=== PATIENT | female | born 1960 | race Caucasian/White ===

== ENCOUNTER → 2020-06-14 12:28 | Outpatient (CLI) | payer BC, SELFPAY ==
--- NOTE | ~2020-06-14 | MM_ITS ---
EXAMINATION: MM screening david BI w kristina HISTORY: Screening mammogram, family history of breast cancer in her mother and sister. TECHNIQUE: Craniocaudal and mediolateral oblique 3-D tomosynthesis images were obtained and synthetic 2-D images were generated. CAD analysis was submitted and interpreted. COMPARISON: 07/05/2019, 06/24/2018, 07/21/2017 BREAST PARENCHYMAL COMPOSITION: There are scattered areas of fibroglandular density. FINDINGS: Stable focal asymmetry is present in the posterior third of the upper outer quadrant of the right breast. There is no evidence of suspicious mass, calcification, or architectural distortion to suggest malignancy in either breast. There has been no suspicious interval change. IMPRESSION: 1. No mammographic evidence of malignancy. 2. Recommend routine screening mammography in one year. BI-RADS Category 2: Benign finding(s). Reviewed, dictated and finalized at location A.
== END ==
PROVIDERS: PCP Family Medicine; Visit Provider Nurse Practitioner
DX: Z12.31 Encounter for screening mammogram for malignant neoplasm of breast (principal)
CPT/HCPCS: 77063; 77067

== ENCOUNTER 2020-06-20 01:54 | Outpatient (CLI) | payer BC, SELFPAY ==
[2020-06-20 20:48] LABS: SARS-CoV-2 RNA PCR Negative
== END 2020-06-20 01:55 | disposition home or self-care (01) ==
LOC: ANHCOVIDDT 01:56
PROVIDERS: PCP Family Medicine; Visit Provider Podiatrist Foot & Ankle Surgery
DX: Z01.812 Encounter for preprocedural laboratory examination (principal); Z20.828 Contact with and (suspected) exposure to other viral communicable diseases
CPT/HCPCS: 87635; C9803; U0003

== ENCOUNTER 2020-06-22 00:28 | Day surgery (SDC) | payer BC, SELFPAY ==
[2020-06-08 14:07] VITALS: BMI 30.9
[2020-06-22] VITALS (9 sets, daily range): BP systolic 95–125; BP diastolic 55–93; PULSE 74–98; RESP 12–16; TEMP 36.4–36.9; O2SAT 97–100
--- NOTE | ~2020-06-22 | XR_ITS ---
EXAMINATION: XR surgery orthopedic DATE: 06/22/2020 09:07 INDICATION: Left foot surgery TECHNIQUE: 3 fluoroscopic spot images of the left midfoot were obtained during procedure performed by Dr. Vargas. Radiologist was not present for the imaging or procedure. The amount of fluoroscopy ti me used during this procedure was 0.6 minutes. COMPARISON: None. FINDINGS: Images demonstrate a talonavicular arthrodesis with cannulated compression screw and dorsal staple fi xation. No fracture. Alignment remains essentially anatomic. Mild polyarticular osteoarthritis in the remaining joints of the midfoot. IMPRESSION: 1. Expected appearance post left talonavicular arthrodesis. Reviewed, dictated and finalized at location B.
[2020-06-22] MEDS: LACTATED RINGERS 1,000 ML 30 ML IV CONT ×2 (06:50→09:10)
--- NOTE | 2020-06-22 06:54 | P.PNAN_ITS ---
Anes - Initial Pre Proc Eval Procedure: Operation Date: 06/22/20 07:30 Proposed Procedures p Talonavicular Joint Fusion Left Foot, Cotton Medial Cuneiform Osteotomy Left Foot - Todd Vargas JR, MD Date/Time: 06/22/20 06:54 Surgeon: Todd Vargas JR, MD Pre Op Diagnosis: Adult Aquired Flat Foot Left Foot Patient Data Age: 59 Gender: F Height: 5 ft 4 in Weight: 81.3 kg Allergies Allergy/AdvReac Type Severity Reaction Status Date / Time hydrocodone AdvReac Unknown NAUSEA/VOMI Verified 06/08/20 14:08 TING Home Medications Medication Instructions Recorded Confirmed Type Fiber Therapy(psyl seed-sugar) 1 tbsp PO DAILY 10/06/19 06/22/20 History Prolia 60 mg SUBCUT [id number] 10/06/19 06/08/20 History cholecalciferol (vitamin D3) 5,000 unit PO DAILY 10/06/19 06/22/20 History esomeprazole magnesium [Nexium] 20 mg PO DAILY 10/06/19 06/22/20 History magnesium 400 mg PO BID PRN 10/06/19 06/22/20 History multivitamin [Multiple Vitamins] 1 tablet PO DAILY 10/06/19 06/22/20 History pseudoephedrine HCl [Sudafed] 30 mg PO Q4-6H PRN 10/06/19 06/08/20 History vitamin E 400 unit PO DAILY 10/06/19 06/22/20 History celecoxib 200 mg capsule 200 mg PO DAILY #90 cap 05/16/20 06/22/20 Rx loratadine 10 mg PO DAILY PRN 06/08/20 06/22/20 History Patient hx anesthesia problems: none Family hx anesthesia problems: none [facility] Past Medical History Medical History Aortic stenosis mild, seen on echo, asymptomatic Gastroesophageal reflux disease without esophagitis Irregular heartbeat PACs Localized osteoarthritis of left knee Vitamin D deficiency Surgical History Surgical History History of total left knee replacement (~11/01/19) History of total right knee replacement (~2018) Presence of right artificial knee joint Family History Family History Father Diabetes mellitus, Onset Age: 60 Family history of diabetes mellitus in first degree relative Family history of arthritis Mother Family history of kidney stones Family history of malignant neoplasm of breast in first degree relative Family history of osteoarthritis Family history of osteoporosis Family history of arthritis Family history of malignant neoplasm Social History Social History Smoking status: Never smoker Alcohol intake: current Drinks per week: 2 Substance use: never Gender identity (if verbalized by the patient): Female Spiritual care concerns: No Agree to blood products: No Anes - Eval Final PreProcedure Day of Procedure 06/22/20 06:54 Patient weight: obese Heart: regular rate and rhythm Lungs: clear to auscultation Airway: Mallampati scale class II Neurological: alert and oriented Last oral intake: >/= 8 hours ASA classification: II Emergent: no Anesthetic plan: proceed Anesthesia type and monitoring: general LMA and standard monitoring Informed Consent: The patient's anesthetic plan and its attendant risks and benefits were discussed with the patient/family/POA. Questions were solicited and answers provided to the satisfaction of the patient/family/POA.
--- NOTE | 2020-06-22 07:11 | WPDHPUPDATE1 ---
History and Physical Update Update Date/Time: 06/22/20 07:11 History and Physical has been reviewed, including an updated exam of the patient. There are NO changes in the patient's condition. Risks, benefits, and alternatives have been discussed and questions answered. Patient agrees to proceed with procedure.
--- NOTE | 2020-06-22 07:19 | WPDANESPNB ---
Anes - Peripheral Nerve Block Date/Time: 06/22/20 07:19 I have discussed with the patient/family/POA the placement of a peripheral nerve block for post-operative pain management, including associated risks, benefits, complications, and side effects. Alternative methods of post-operative analgesia were detailed. Questions were solicited and answers provided to the satisfaction of the patient/family/POA. Time-Out: A pre-procedural Time-Out was completed immediately before starting the procedure and confirmed: Patient Identification, Site, Procedure, Patient Position and the Availability of Requisite Equipment. Clinical Indications: Acute post-operative pain management requested by the operative surgeon. Nerve Block Insertion Note Anes-nerve block: posterior fossa sciatic left and other (saphenous) Patient position: supine Skin prep: chlorhexidine Needle: 22 gauge, stimulating, insulated echogenic needle. Needle length: 80 mm Technique: nerve stimulation lost at (mA) (0.35) Injectate: bupivacaine 0.5% with epi 5 mcg/ml (20 cc sciatic, 10 cc saphenous) and dexamethasone (mg) (8) Observations: tolerated well Complications: none Procedure start time:: 710 Procedure end time:: 718
[2020-06-22] MEDS: ceFAZolin 2 GM/D5W 50 ML 2 GM/50 ML BAG IVPB (07:25)
--- NOTE | 2020-06-22 09:16 | PM.OP ---
Procedure Note - Brief Procedure Note - Brief Date of procedure: 06/22/20 Pre-op diagnosis: Adult Aquired Flat Foot Left Foot Post-op diagnosis: same Procedure performed: Talonavicular joint fusion left foot Anesthesia: GLMA Surgeon: Todd Vargas JR, DPM Estimated blood loss (mL): 5 Complications: No immediate complications Condition: stable Disposition: same day
--- NOTE | 2020-06-22 12:46 | OP_ITS ---
DATE OF PROCEDURE: 06/22/2020 PREOPERATIVE DIAGNOSES: 1. Talotarsal instability of the left foot. 2. Osteoarthritis of the talonavicular joint, left foot. 3. Posterior tibial tendon dysfunction, left foot with a pes planus deformity with an adult acquired pes planovalgus deformity. POSTOPERATIVE DIAGNOSES: 1. Talotarsal instability of the left foot. 2. Osteoarthritis of the talonavicular joint, left foot. 3. Posterior tibial tendon dysfunction, left foot with a pes planus deformity with an adult acquired pes planovalgus deformity. PROCEDURE: Talonavicular joint fusion of the left foot. PATHOLOGY: None. ANESTHESIA: General with popliteal fossa block. HEMOSTASIS: Pneumatic thigh tourniquet at 300 mmHg. ESTIMATED BLOOD LOSS: Minimal. MATERIALS USED: 3-0 PDS, 4-0 Vicryl, and 4-0 Monocryl, 1 IKO System 20 mm x 20 mm compression staple, 1 IKO System 4.3 mm headless partially-threaded cannulated screw. INJECTABLES: None. COMPLICATIONS: None. PROCEDURE IN DETAIL: Under mild sedation, the patient was brought into the operating room, placed on the operating table in the supine position. A pneumatic thigh tourniquet was placed about the patient's left thigh. Following general anesthesia and a previous popliteal fossa block, the left foot was then scrubbed, prepped, and draped in the usual aseptic manner. An Esmarch bandage was then used to exsanguinate the patient's left foot and the pneumatic thigh tourniquet was then inflated. The procedure started in the following manner: Attention was directed to the dorsal aspect of the talonavicular joint of the left foot where a 6 cm incision was made in between the extensor hallucis longus tendon as well as the tibialis anterior tendon. The incision was continued deep down through subcutaneous tissues using sharp and blunt dissection. All bleeders were ligated and cauterized as necessary. At this point, a full length periosteal and capsular incision was made overlying the talonavicular joint. The periosteal and capsular structures were freed both medially and laterally thus exposing the talonavicular joint at the operative site. At this point, a curette was used to remove all cartilage. Next a 2.0 mm drill bit was used to fenestrate the head of the talus as well as the base of the navicular. Next, a small osteotome and corresponding mallet were used to fish scale the talonavicular joint to promote fusion across the arthrodesis site. At this point, the joint distractor that was used to open the joint for joint preparation was removed. A guidewire for a 4.3 mm IKO System partially-threaded headless screw was driven from plantar medial to the central or lateral aspect of the neck. Next, a countersink was used in order to prevent fracturing of the navicular with screw purchase. Next, a 4.3 mm x 34 mm IKO System headless partially-threaded cannulated screw was driven across the talonavicular joint with excellent compression noted. Fluoroscopy was used to make sure that the screw was appropriately positioned in both the AP and lateral view. Next, in order to obtain excellent compression across the lateral aspect of the talonavicular joint, a 20 mm x 20 mm IKO System compression staple was placed from dorsal to plantar with excellent compression noted. [facility] Allomatrix bone graft was placed along the dorsal aspect of the talonavicular joint anywhere where there was gapping present after the joint preparation. The wound site was then flushed with copious amounts of sterile saline. Next, the periosteum and capsular structures were reapproximated and coapted utilizing 3-0 PDS. Next, the subcutaneous structures were reapproximated and coapted utilizing 4-0 Vicryl. Next, the skin was reapproximated and coapte
== END 2020-06-22 11:57 | disposition home or self-care (01) ==
PROVIDERS: PCP Family Medicine; Visit Provider Podiatrist Foot & Ankle Surgery
PROC: (CPT 28750; principal; 2020-06-22 07:30)
DX: M25.372 Other instability, left ankle (principal); M19.072 Primary osteoarthritis, left ankle and foot; M21.42 Flat foot [pes planus] (acquired), left foot; M21.072 Valgus deformity, not elsewhere classified, left ankle; M76.822 Posterior tibial tendinitis, left leg; G89.18 Other acute postprocedural pain; I35.0 Nonrheumatic aortic (valve) stenosis; K21.9 Gastro-esophageal reflux disease without esophagitis; E55.9 Vitamin D deficiency, unspecified; E66.9 Obesity, unspecified; Z68.30 Body mass index [BMI] 30.0-30.9, adult
CPT/HCPCS: 28740; 64445; 64450; A9270; C1713; C9290; J0690; J1100; J2250; J2405; J2704; J3010; J7120

== ENCOUNTER 2020-09-25 00:26 | Outpatient (CLI) | payer BC, SELFPAY ==
[2020-09-25 18:51] LABS: SARS-CoV-2 RNA PCR Negative
== END 2020-09-25 00:27 | disposition home or self-care (01) ==
LOC: ANHCOVIDDT 00:26
PROVIDERS: PCP Family Medicine; Visit Provider Podiatrist Foot & Ankle Surgery
DX: Z01.812 Encounter for preprocedural laboratory examination (principal); Z20.828 Contact with and (suspected) exposure to other viral communicable diseases
CPT/HCPCS: 87635; C9803; U0003

== ENCOUNTER 2020-09-25 08:25 | Outpatient (CLI) | payer BC, SELFPAY ==
--- NOTE | 2020-09-25 08:28 | ECG_ITS ---
Measurements Intervals [place] Rate: 75 P: -1 SC: 135 QRS: 9 QRSD: 88 T: 7 QT: 366 QTc: 410 Interpretive Statements SINUS RHYTHM MINIMAL Q WAVES- HIGH LATERAL LEADS BASELINE ARTIFACT- I, II, AVR, AVL, AVF BORDERLINE ECG Electronically Signed On 09-25-2020 8:45:06 JUICE STANDARDIZER by Edouard Schafer D.O.
== END 2020-09-25 08:26 | disposition home or self-care (01) ==
LOC: ANHSURGERY 08:28
PROVIDERS: PCP Family Medicine; Visit Provider Podiatrist Foot & Ankle Surgery
DX: Z01.810 Encounter for preprocedural cardiovascular examination (principal); I49.9 Cardiac arrhythmia, unspecified
CPT/HCPCS: 93005

== ENCOUNTER 2020-09-28 01:46 | Day surgery (SDC) | payer BC, SELFPAY ==
[2020-09-20 13:57] VITALS: BMI 30.7
--- NOTE | 2020-09-27 12:56 | WPDANESEPPF ---
Anes - Initial Pre Proc Eval Procedure: Operation Date: 09/28/20 07:30 Proposed Procedures p Lapidus Bunionectomy Right Foot, Ronen Phalangeal Osteotomy Right Hallux - oTdd Vargas JR, MD s Talotarsal Stabilization Right Foot - Todd Vargas JR, MD Date/Time: 09/27/20 12:56 Surgeon: Todd Vargas JR, MD Pre Op Diagnosis: Bunion Right Foot, Talotarsal Instability Right Fo Patient Data Age: 59 Gender: F Height: 1.63 m Weight: 81.19 kg Allergies Allergy/AdvReac Type Severity Reaction Status Date / Time hydrocodone AdvReac Mild NAUSEA/VOMI Verified 09/28/20 06:06 TING Home Medications Medication Instructions Recorded Confirmed Type Fiber Therapy(psyl seed-sugar) 1 tbsp PO DAILY 10/06/19 09/28/20 History Prolia 60 mg SUBCUT [id number] 10/06/19 09/20/20 History esomeprazole magnesium [Nexium] 20 mg PO DAILY 10/06/19 09/28/20 History magnesium 400 mg PO BID PRN 10/06/19 09/28/20 History multivitamin [Multiple Vitamins] 1 tablet PO DAILY 10/06/19 09/28/20 History pseudoephedrine HCl [Sudafed] 30 mg PO Q4-6H PRN 10/06/19 09/28/20 History vitamin E 400 unit PO DAILY 10/06/19 09/28/20 History celecoxib 200 mg capsule 200 mg PO DAILY #90 cap 05/16/20 09/28/20 Rx loratadine 10 mg PO DAILY PRN 06/08/20 09/28/20 History ergocalciferol (vitamin D2) 1,250 1,250 mcg PO WEEKLY 07/11/20 09/28/20 History mcg (50,000 unit) capsule Patient hx anesthesia problems: none Family hx anesthesia problems: none PMFSH Past Medical History Medical History (Updated 09/27/20 @ 12:59 by Unruly Kennedy MD) Gastroesophageal reflux disease without esophagitis Irregular heartbeat PACs Localized osteoarthritis of left knee Obesity Vitamin D deficiency Surgical History Surgical History History of total left knee replacement (~11/01/19) History of total right knee replacement (~2018) Presence of right artificial knee joint Family History Family History Father Diabetes mellitus, Onset Age: 60 Family history of diabetes mellitus in first degree relative Family history of arthritis Mother Family history of kidney stones Family history of malignant neoplasm of breast in first degree relative Family history of osteoarthritis Family history of osteoporosis Family history of arthritis Family history of malignant neoplasm Social History Social History Smoking status: Never smoker Second hand tobacco smoke exposure: No Alcohol intake: never Drinks per week: 2 Substance use: never Substance use type: does not use Living arrangements: with family Gender identity (if verbalized by the patient): Female Spiritual care concerns: No Agree to blood products: No Anes - Eval Final PreProcedure Day of Procedure 09/27/20 12:56 Patient weight: obese Heart: regular rate and rhythm Lungs: clear to auscultation and normal air movement Airway: Mallampati scale class II Neurological: alert and oriented Last oral intake: >/= 8 hours ASA classification: III Emergent: no Anesthetic plan: proceed Anesthesia type and monitoring: general LMA Informed Consent: The patient's anesthetic plan and its attendant risks and benefits were discussed with the patient/family/POA. Questions were solicited and answers provided to the satisfaction of the patient/family/POA.
[2020-09-28] VITALS (7 sets, daily range): BP systolic 107–127; BP diastolic 65–80; PULSE 75–94; RESP 16; TEMP 36.5–36.9; O2SAT 95–99
--- NOTE | ~2020-09-28 | XR_ITS ---
EXAMINATION: XR surgery orthopedic DATE: 09/28/2020 10:04 INDICATION: Right foot orthopedic surgery TECHNIQUE: 4 fluoroscopic spot images of the right foot were obtained during procedure performed by Ammy Vargas. Radiologist was not present for the imaging or procedure. The amount of fluoroscopy time used during this procedure was 2.3 minutes. COMPARISON: None. FINDINGS: Initial images demonstrate a metal implant for arthroereisis which projects in expected position of t he sinus Tarsi. Subsequent images demonstrate a first tarsal metatarsal arthrodesis with a pair of do rsal plate and screw fixations. Bunionectomy with osteotomy at the medial head of the first metatarsa l. Alignment closing wedge osteotomy at the proximal diaphysis of the first proximal phalanx with kristie rod/medial sided staple fixation. No acute fracture. Mild osteoarthritis at the first metatarsophalan geal joint. IMPRESSION: 1. Fluoroscopy utilized during orthopedic procedure. See procedure note for further detail. Reviewed, dictated and finalized at location A. NG TEACHER IMPRESSION: 1. Fluoroscopy utilized during orthopedic procedure. See procedure note for fur ther detail.
[2020-09-28] MEDS: LACTATED RINGERS 1,000 ML 30 ML IV CONT ×2 (06:57→10:19)
--- NOTE | 2020-09-28 06:58 | WPDANESPNB ---
Anes - Peripheral Nerve Block Date/Time: 09/28/20 06:58 I have discussed with the patient/family/POA the placement of a peripheral nerve block for post-operative pain management, including associated risks, benefits, complications, and side effects. Alternative methods of post-operative analgesia were detailed. Questions were solicited and answers provided to the satisfaction of the patient/family/POA. Time-Out: A pre-procedural Time-Out was completed immediately before starting the procedure and confirmed: Patient Identification, Site, Procedure, Patient Position and the Availability of Requisite Equipment. Clinical Indications: Acute post-operative pain management requested by the operative surgeon. Nerve Block Insertion Note Anes-nerve block: posterior fossa sciatic (20cc) right Patient position: supine Skin prep: chlorhexidine Needle: 22 gauge, stimulating, insulated echogenic needle. Needle length: 80 mm Technique: ultrasound (in plane) Injectate: bupivacaine 0.25% with epi 5 mcg/ml (20cc) Observations: tolerated well Complications: none Procedure start time:: 720 Procedure end time:: 725
--- NOTE | 2020-09-28 07:15 | WPDHPUPDATE1 ---
History and Physical Update Update Date/Time: 09/28/20 07:15 History and Physical has been reviewed, including an updated exam of the patient. There are NO changes in the patient's condition. Risks, benefits, and alternatives have been discussed and questions answered. Patient agrees to proceed with procedure.
[2020-09-28] MEDS: ceFAZolin 2 GM/D5W 50 ML 2 GM/50 ML BAG IVPB (07:29)
--- NOTE | 2020-09-28 10:59 | PM.PROC ---
Procedure Note - Detailed Date of procedure: 09/28/20 Pre-op diagnosis: Bunion Right Foot, Talotarsal Instability Right Fo Post-op diagnosis: same Procedure performed: 1. Lapidus bunionectomy right foot 2. Ronen Phalangeal ostetomy right hallux 3. Talotarsal stabilization right foot Implants: 1. Treace Lapiplasty 2 plate system with 8 locking screws 2. Windsor 8mm compression staple 3. Number 6 Hyprocure subtalar implant Anesthesia: GLMA and regional Surgeon: Todd Vargas JR, DPM Estimated blood loss (mL): 10 Tourniquet time (min): 250 Drains: No Packing: No Pathology: none sent Complications: No immediate complications Condition: stable Disposition: same day Findings: Under mild sedation, the patient was brought to the operating room, placed on the operating table in the supine position. A pneumatic ankle tourniquet was placed about the patient's right ankle. Following general anesthesia and a previous popliteal fossa block, the left foot was then scrubbed, prepped, and draped in the usual aseptic manner. An Esmarch bandage was then used to examine the patient's foot and pneumatic ankle tourniquet was then inflated. Attention was then directed to the lateral aspect of the sinus tarsi of the affected foot where a 2 cm incision was made along the lateral sinus tarsi canal. The incision was continued deep down through the subcutaneous tissues using sharp and blunt dissection. All bleeders ligated and cauterized as necessary. At this point, the talocalcaneal interosseous ligament was transected utilizing blunt tenotomy scissors. Next, a guidewire for the HyProCure system was placed from lateral to medial across the sinus tarsi canal. Next a size 6 trial implant was placed from lateral to medial across the sinus tarsi canal and then the midtarsal joint was then dorsiflexed in order to make sure that there was adequate locking of the midtarsal joint. Excellent improvement as far as the longitudinal medial arch of the foot was noted. Furthermore, the AP and lateral views showed excellent position of the talus atop the calcaneus with the talar head fully covered by the navicular as well as the rectus cyma line. Next, the trial sizer was removed and a HyProCure #6 implant was placed from lateral to medial through the sinus tarsi appropriately positioned where the trailing end the implant was appropriately positioned along the lateral aspect of the neck of the talus. Next the guidewire was removed. Excellent position of the sinus tarsi implant was maintained. The wound site was flushed with copious amounts of sterile saline. Next, the subcutaneous structures were reapproximated and coapted utilizing 3-0 Vicryl. Next, the skin was reapproximated and coapted utilizing 4-0 Monocryl in simple interrupted suture technique. Surgery began in the following manner. Attention was directed to the dorsal aspect of the 1st metatarsocuneiform of the foot where fluoroscopy was used to identify the joint. A 3 cm incision was made overlying the dorsal aspect of the 1st metatarsocuneiform joint of the foot just medial to the extensor hallucis longus tendon. The incision was then continued deep down through the subcutaneous tissues using sharp and blunt dissections. All bleeders were ligated and cauterized as necessary. At this point, the extensor tendon was identified and reflected laterally. Next, the periosteum and capsular incision was made at the full length of the skin incision exposing the medial cuneiform as well as the base of the 1st metatarsal. Next, a sagittal bone saw was introduced from dorsal to plantar across the 1st metatarsocuneiform joint in order to free up any ankylosed portions of the joint and also to release any adhesions. A fulcrum was placed along the lateral aspect of the base of the 1st metatarsal from the Treace Lapiplasty system. At this point, a small 2 cm incision was made along the lateral aspect of the 1st metatarsop
== END 2020-09-28 13:13 | disposition home or self-care (01) ==
PROVIDERS: PCP Family Medicine; Visit Provider Podiatrist Foot & Ankle Surgery
PROC: (CPT 28299; principal; 2020-09-28 07:30)
PROC: (CPT 28035; 2020-09-28 07:30)
DX: M21.611 Bunion of right foot (principal); M25.371 Other instability, right ankle; G89.18 Other acute postprocedural pain; K21.9 Gastro-esophageal reflux disease without esophagitis; E55.9 Vitamin D deficiency, unspecified; I49.1 Atrial premature depolarization; E66.9 Obesity, unspecified; Z68.31 Body mass index [BMI] 31.0-31.9, adult
CPT/HCPCS: 28297; 28298; 28899; 64445; A9270; C1713; C9290; J0690; J1100; J2250; J2405; J2704; J3010; J7120

== ENCOUNTER 2020-10-15 12:24 | Outpatient (CLI) | payer BC, SELFPAY ==
--- NOTE | ~2020-10-15 | MMUS_ITS ---
EXAMINATION: MM diagnostic david RT w kristina, US breast RT limited HISTORY: Right lateral breast pain TECHNIQUE: Additional 3-D tomosynthesis images of the right breast were performed and synthetic 2-D i mages were generated. CAD analysis was submitted and interpreted. High resolution Limited right later al breast ultrasound was performed. COMPARISON: Comparison to multiple prior studies sequentially, with oldest reviewed study dated 07/04. BREAST PARENCHYMAL COMPOSITION: Breast composed of scattered areas of fibroglandular density FINDINGS: MAMMOGRAPHIC FINDINGS: The right breast is stable without evidence for malignancy. No new masses, calcifications or architec tural distortion in the right breast to suggest malignancy. ULTRASOUND: Limited right breast ultrasound: Normal heterogeneous echotexture without focal solid or cystic mass. IMPRESSION: 1. No mammographic or sonographic evidence for malignancy in the right breast. 2. Routine yearly screening mammogram and regular clinical breast examination are recommended. BI-RADS Category 1: Negative Reviewed, dictated and finalized at location A. TO PULPER OPERATOR IMPRESSION: 1. No mammographic or sonographic evidence for malignancy in the right breast. 2. Routine yearly screening mammogram and regular clinical breast examination a re recommended. BI-RADS Category 1: Negative
== END 2020-10-15 12:25 | disposition home or self-care (01) ==
PROVIDERS: PCP Family Medicine; Visit Provider Obstetrics & Gynecology Gynecology
DX: N64.4 Mastodynia (principal)
CPT/HCPCS: 76642; 77061; 77065; G0279

== ENCOUNTER 2021-05-08 16:07 | Outpatient (CLI) | payer BC, SELFPAY ==
--- NOTE | ~2021-05-08 | MM_ITS ---
EXAMINATION: MM screening david BI w kristina HISTORY: Screening TECHNIQUE: Craniocaudal and mediolateral oblique 3-D tomosynthesis images were obtained and synthetic 2-D images were generated. CAD analysis was submitted and interpreted. COMPARISON: Comparison to multiple prior studies sequentially, with oldest reviewed study dated 12/2016. BREAST PARENCHYMAL COMPOSITION: There are scattered areas of fibroglandular density. FINDINGS: There is no evidence of suspicious mass, calcification, or architectural distortion to sugg est malignancy in either breast. There has been no suspicious interval change. IMPRESSION: 1. No mammographic evidence of malignancy. 2. Recommend routine screening mammography in one year. BI-RADS Category 1: Negative Reviewed, dictated and finalized at location A.
== END 2021-05-08 16:08 | disposition home or self-care (01) ==
PROVIDERS: PCP Family Medicine; Visit Provider Nurse Practitioner
DX: Z12.31 Encounter for screening mammogram for malignant neoplasm of breast (principal)
CPT/HCPCS: 77063; 77067

== ENCOUNTER 2021-06-21 08:47 | Outpatient (CLI) | payer BC, SELFPAY ==
--- NOTE | ~2021-06-21 | DEXA_ITS ---
Bone Density Report Name: Ning Ortiz Age: 60 Sex: Female Ethnicity: White Date of : 1960 Indication: postmenopausal; height loss; inflammatory bowel disease; Referring Provider: GIANLUCA, JANINA Study: Bone densitometry was performed. Exam Date: June 21, 2021 Accession number: [id number] Bone Density: Region BMD T-score Z-score Classification AP Spine (L1-L4) 1.048 0.0 1.5 Normal Femoral Neck (Left) 0.586 -2.4 -1.1 Osteopenia Total Hip (Left) 0.767 -1.4 -0.5 Osteopenia Total Hip Bilateral Avg 0.798 -1.1 -0.3 Osteopenia Femoral Neck (Right) 0.616 -2.1 -0.8 Osteopenia Total Hip (Right) 0.827 -0.9 0.0 Normal World Health Organization criteria for BMD impression classify patients as: Normal (T-score at or above -1.0), Osteopenia (T-score between -1.0 and -2.5), or Osteoporosis (T-score at or below -2.5). 10-year Fracture Risk: FRAX not reported because: Treated for osteoporosis Clinical Information Provided by Patient: Is being treated for osteoporosis Has used the following medications: Prolia (i.e. denosumab), Vitamin D Has the following medical conditions: Inflammatory bowel diseases Patient maximum height was 65.5 Menopause Age: 50 Drinks caffeinated beverages Onset of menses at age 14 Number of children 2 Impression: The patient has low bone mass, based on the Left Femoral Neck T-score. Discussion: It is important to ask patients whether they are taking their medications and to encourage continued and appropriate compliance with their osteoporosis therapies to reduce fracture risk. It is also important to review their risk factors and encourage appropriate calcium and vitamin D intakes, exercise, fall prevention and other lifestyle measures. Follow-Up: Consider a repeat BMD and Vertebral Fracture Assessment (VFA) exam in 2 years or sooner if medically necessary, to reassess this patient's status. Reported by: TIANA on 06/21/2021 9:13:00 AM. Reviewed, dictated and finalized at location A. REA
== END 2021-06-21 08:48 | disposition home or self-care (01) ==
LOC: ANHIMG 08:48
PROVIDERS: PCP Family Medicine; Visit Provider Nurse Practitioner
DX: Z78.0 Asymptomatic menopausal state (principal); M85.89 Other specified disorders of bone density and structure, multiple sites
CPT/HCPCS: 77080

== ENCOUNTER 2021-08-23 01:31 | Day surgery (SDC) | payer BC, SELFPAY ==
[2021-08-15 12:51] VITALS: BMI 30.9
--- NOTE | 2021-08-22 15:15 | WPDANESEPPF ---
Anes - Initial Pre Proc Eval Procedure: Operation Date: 08/23/21 11:00 Proposed Procedures p Lapidus Bunionectomy Left Foot, Ronen Phalangeal Osteotomy Left Hallux - Todd Vargas JR, MD Date/Time: 08/22/21 15:15 Surgeon: Todd Vargas JR, MD Pre Op Diagnosis: Bunion Left Foot Patient Data Age: 60 Gender: F Height: 1.63 m Weight: 81.65 kg Allergies Allergy/AdvReac Type Severity Reaction Status Date / Time hydrocodone AdvReac Mild NAUSEA/VOMI Verified 08/23/21 09:24 TING Home Medications Medication Instructions Recorded Confirmed Type Fiber Therapy(psyl seed-sugar) 1 tbsp PO DAILY 10/06/19 08/23/21 History Prolia 60 mg SUBCUT [id number] 10/06/19 08/15/21 History esomeprazole magnesium [Nexium] 20 mg PO DAILY 10/06/19 08/15/21 History magnesium 400 mg PO BID PRN 10/06/19 08/23/21 History multivitamin [Multiple Vitamins] 1 tablet PO DAILY 10/06/19 08/23/21 History pseudoephedrine HCl [Sudafed] 30 mg PO Q4-6H PRN 10/06/19 08/15/21 History vitamin E 400 unit PO DAILY 10/06/19 08/23/21 History loratadine 10 mg PO DAILY PRN 06/08/20 08/15/21 History ergocalciferol (vitamin D2) 1,250 1,250 mcg PO WEEKLY 07/11/20 08/23/21 History mcg (50,000 unit) capsule celecoxib 200 mg capsule 200 mg PO DAILY #90 cap 06/07/21 08/23/21 Rx Patient hx anesthesia problems: none Family hx anesthesia problems: none Results Review: All pre-operative results and documents have been reviewed as part of the pre-operative evaluation. [facility] Past Medical History Medical History BMI 31.0-31.9,adult Gastroesophageal reflux disease without esophagitis Irregular heartbeat PACs Localized osteoarthritis of left knee Obesity Vitamin D deficiency Surgical History Surgical History History of total left knee replacement (~01/14/20) History of total right knee replacement (~2019) Presence of right artificial knee joint Family History Family History Father Diabetes mellitus, Onset Age: 60 Family history of diabetes mellitus in first degree relative Family history of arthritis Mother Family history of kidney stones Family history of malignant neoplasm of breast in first degree relative Family history of osteoarthritis Family history of osteoporosis Family history of arthritis Family history of malignant neoplasm Sibling Breast cancer Crohn's colitis Bone cancer Social History Social History Smoking status: Never smoker Second hand tobacco smoke exposure: No Alcohol intake: current Drinks per week: 2 Substance use: never Substance use type: does not use Living arrangements: with family 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 Informed Consent: The patient's anesthetic plan and its attendant risks and benefits were discussed with the patient/family/POA. Questions were solicited and answers provided to the satisfaction of the patient/family/POA.
[2021-08-23] VITALS (8 sets, daily range): BP systolic 112–139; BP diastolic 70–86; PULSE 70–86; RESP 11–20; TEMP 36.4–36.6; O2SAT 94–100; BMI 31.6
--- NOTE | ~2021-08-23 | XR_ITS ---
EXAMINATION: XR surgery orthopedic EXAM DATE: 08/23/2021 13:08 INDICATION: Left foot bunionectomy. TECHNIQUE: Fluoroscopy used during XR surgery orthopedic performed by Dr. Todd Vargas JR MD. Radiologist was not present for the imaging or procedure. Total fluoroscopic time of 42 seconds. Th e DAP for this procedure was 3.9 cGycm2. A total of 3 images sent to PACS from the exam. Comparison is made to prior examination from 09/28/2020. FINDINGS: Surgical changes from left bunionectomy, 1st proximal phalangeal osteotomy with fixation st aple. There is hardware bridging the 1st tarsometatarsal joint. Correlate with procedure note. IMPRESSION: Fluoroscopy used during left foot surgery. Reviewed, dictated and finalized at location A.
--- NOTE | 2021-08-23 07:18 | WPDHPUPDATE1 ---
History and Physical Update Update Date/Time: 08/23/21 07:18 History and Physical has been reviewed, including an updated exam of the patient. There are NO changes in the patient's condition. Risks, benefits, and alternatives have been discussed and questions answered. Patient agrees to proceed with procedure.
--- NOTE | 2021-08-23 09:34 | WPDANESPNB ---
Anes - Peripheral Nerve Block Date/Time: 08/23/21 09:34 I have discussed with the patient/family/POA the placement of a peripheral nerve block for post-operative pain management, including associated risks, benefits, complications, and side effects. Alternative methods of post-operative analgesia were detailed. Questions were solicited and answers provided to the satisfaction of the patient/family/POA. Time-Out: A pre-procedural Time-Out was completed immediately before starting the procedure and confirmed: Patient Identification, Site, Procedure, Patient Position and the Availability of Requisite Equipment. Clinical Indications: Acute post-operative pain management requested by the operative surgeon. Nerve Block Insertion Note Anes-nerve block: posterior fossa sciatic (20cc) left Patient position: supine Skin prep: chlorhexidine Needle: 22 gauge, stimulating, insulated echogenic needle. Needle length: 80 mm Technique: ultrasound (in plane) Injectate: bupivacaine 0.5% with epi 5 mcg/ml (20cc) Observations: tolerated well Complications: none Procedure start time:: 1115 Procedure end time:: 1120
[2021-08-23] MEDS: LACTATED RINGERS 1,000 ML 30 ML IV CONT (09:42)
[2021-08-23] MEDS: ceFAZolin 2 GM/D5W 50 ML 2 GM/50 ML BAG IVPB (11:24)
--- NOTE | 2021-08-23 13:44 | W.PM.PROC2 ---
Procedure Note - Detailed Date of Procedure 08/23/21 Pre-op Diagnosis Painful Bunion Left Foot Post-op Diagnosis same Procedure Performed Lapidus Bunionectomy left foot Ronen phlangeal osteotomy left hallux Surgeon Todd Vargas JR, MARIELLEM Anesthesia general and regional Description of Procedure Under mild sedation, the patient was brought to the operating room, placed on the operating table in the supine position. A pneumatic ankle tourniquet was placed about the patient's ankle. Following general anesthesia and a previous popliteal fossa block, the foot was then scrubbed, prepped, and draped in the usual aseptic manner. An Esmarch bandage was then used to examine the patient's foot and pneumatic ankle tourniquet was then inflated. Surgery began in the following manner. Attention was directed to the dorsal aspect of the 1st metatarsocuneiform of the foot where fluoroscopy was used to identify the joint. A 3 cm incision was made overlying the dorsal aspect of the 1st metatarsocuneiform joint of the foot just medial to the extensor hallucis longus tendon. The incision was then continued deep down through the subcutaneous tissues using sharp and blunt dissection. All bleeders were ligated and cauterized as necessary. At this point, the extensor tendon was identified and reflected laterally. Next, the periosteum and capsular incision was made at the full length of the skin incision exposing the medial cuneiform as well as the base of the 1st metatarsal. Next, a sagittal bone saw was introduced from dorsal to plantar across the 1st metatarsocuneiform joint in order to free up any ankylosed portions of the joint and also to release any adhesions. Two Steinmann Pins were driven from dorsal to plantar 1cm proximal and distal to the 1st metatarsal cuneiform joint. The provided sharp curved osteotome and curette was used to resect the cartilage and subchondral bone and a 2.0mm drill bit was used to fenestrate the joint to promote fusion. At this point, a small 2 cm incision was made along the lateral aspect of the 1st metatarsophalangeal joint of the right foot and a lateral release consisting of a lateral capsule incision as well as release of the adductor hallucis tendon with the tenotomy as well as releasing the distal aspect and lateral aspect and proximal aspect of the fibular sesamoid. After this, a lateral release was performed. The hallux was noted to be slightly reduced as far as the track-bound hallux. A 3m incision was made medial to the first metatarsal head extending proximal to the proximal phalanx. A 1.4mm Steinmann pin was driven from medial to lateral across the 1st metatarsal head. Next the Lapifuse positioner was used to obtain 3 plane correction of the hallux abductovalgus deformity. Fluoroscopy was used to make sure that the 1st MPJ was congruous and the sesamoid apparatus was centered under the first metatarsal. Next a 4mm cannulated screw was driven from the medial base of the 1st metatarsal to the central and lateral cuneiform bone. Excellent compression was noted, next a Lapifuse plate was placed dorsal medially along the 1st metatarsal cuneiform joint and 4 locking and one eccentrically drilled non locking screws was used to further compress the joint to ensure arthrodesis. At this point the positioner was removed and fluoroscopy was used to make sure that deformity correction was maintained. The patient still had slight hallux abductus so I made a closing medial base wedge resection from the base of the proximal phalanx and compressed the osteotomy with a Spongecell 8mm nitinol compression staple. After the Ronen osteotomy the hallux was noted to be in a rectus position. The periosteum and capsular structures were reapproximated and coapted utilizing horizontal mattress as well as simple interrupted suture fashion technique along the 1st metatarsophalangeal joint and then 3-0 PDS was then used to reappro
[2021-08-23] MEDS: fentaNYL CITRATE INJ (*CRX) 100 MCG/2 ML VIAL 25 MCG IV PUSH ×2 (13:49→13:52)
== END 2021-08-23 15:13 | disposition home or self-care (01) ==
PROVIDERS: PCP Family Medicine; Visit Provider Podiatrist Foot & Ankle Surgery
PROC: (CPT 28299; principal; 2021-08-23 11:00)
DX: M21.612 Bunion of left foot (principal); K21.9 Gastro-esophageal reflux disease without esophagitis; G89.18 Other acute postprocedural pain; I49.9 Cardiac arrhythmia, unspecified; E55.9 Vitamin D deficiency, unspecified; E66.9 Obesity, unspecified; Z68.31 Body mass index [BMI] 31.0-31.9, adult
CPT/HCPCS: 28298; 64445; C1713; J0690; J1100; J1885; J2250; J2405; J2704; J3010; J7120

== ENCOUNTER 2022-01-31 00:46 | Day surgery (SDC) | payer OTHER, SELFPAY ==
[2022-01-27 15:16] VITALS: BMI 31.4
--- NOTE | 2022-01-27 15:26 | PC.NURSE ---
Report to the Outpatient Waiting Room, entrance under the green pavilion located off [facility], at time __0600 on date __01/31/22 . OR Time: 729___. - You and your visitor will be asked a series of questions to screen for COVID 19 for your protection. - A mask is required within the hospital. Preoperative COVID Testing Requirements: NONE No COVID Test needed if: (proof is required; if not received patient will have Rapid Test prior to entry) - Patient has received COVID Vaccine at least 14 days prior to procedure date or - Patient has positive COVID test result within last 90 days of surgery date. COVID Test needed if above criteria is not met If not COVID vaccinated a COVID test must be conducted within 72 hours of surgery and patient is asked to isolate self from time of testing until procedure. You will go to the [facility] for your COVID testing. The [facility] site is located at the corner of [address] [facility]. You will only be called if COVID results are positive and your surgeon may reschedule your elective surgery date. Patients may have clear liquids (water, carbonated beverages, clear teas, apple juice) until 3 hours prior to surgery (0430 AM) with a maximum of 20 ounces. - No food from midnight until time of surgery - Infants may have breast milk until 4 hours before surgery, infant formula 6 hours prior to surgery. - Children will be allowed to drink immediately following surgery. If applicable, please bring a bottle or sippy cup to assist with drinking. Juice, water, soda, and popsicles are readily available. For infants on formula, please bring formula the day of surgery. Pacifiers are allowed. Take the following medications with a SIP of water the morning of surgery: NONE Medications to discontinue per ANESTHESIA - _ALL VITAMINS OF TODAY 01/27/22__ Date to take last dose Please no make-up, nail latvian, hairspray, perfume, deodorant, or body powder the day of surgery. No jewelry (including any body piercings) or valuables the day of surgery, leave them at home. Please take a shower or bath the night before, or the morning of, surgery with an antibacterial soap. Wear comfortable, loose fitting clothing. Children are encouraged to wear pajamas. - Jewelry must be removed prior to entering the operating room. Rings and piercings that are not removed may be cut off. - The hospital will not accept responsibility for valuables. - Please leave all valuables, including medications, at home the day of surgery. If you are going home after surgery, a licensed warehouse delivery driver must drive you home. - NO public transportation without another adult. - We recommend that an adult stay with you for 24 hours following discharge. - We also recommend that you do not drive, make important decision, drink alcoholic beverages, or take any drugs that were not prescribed by your health care provider for at least 24 hours after your discharge time. For Pediatric surgeries, we recommend two adults accompany the child home (only one inside the building at this time). One visitor will be allowed to accompany the patient into the hospital. Patients visitor will be instructed to remain with patient at all times or leave the building. We will allow the visitor to come back to the postoperative area when patient is ready. Follow any additional instructions given to you from your surgeon. Telephone instructions given to ___PT and asked if any additional questions and then verbalized understanding. Patient advised to call surgeon office or pre surgery nurse liaison [phone] if any additional questions.
--- NOTE | 2022-01-30 12:05 | WPDANESEPPF ---
Anes - Initial Pre Proc Eval Procedure: Operation Date: 01/31/22 07:30 Proposed Procedures p Painful Hardware Removal Left Foot - Todd Vargas JR, MD Date/Time: 01/30/22 12:05 Surgeon: Todd Vargas JR, MD Pre Op Diagnosis: left foot painful hardware Patient Data Age: 61 Gender: F Height: 1.63 m Weight: 83.18 kg Allergies Allergy/AdvReac Type Severity Reaction Status Date / Time hydrocodone AdvReac Mild NAUSEA/VOMI Verified 01/31/22 06:45 TING Home Medications Medication Instructions Recorded Confirmed Type Fiber Therapy(psyl seed-sugar) 2 tbsp PO DAILY 10/06/19 01/27/22 History Prolia 60 mg SUBCUT [id number] 10/06/19 01/27/22 History esomeprazole magnesium [Nexium] 40 mg PO DAILY 10/06/19 01/27/22 History magnesium 400 mg PO BID PRN 10/06/19 01/27/22 History multivitamin [Multiple Vitamins] 1 tablet PO DAILY 10/06/19 01/27/22 History pseudoephedrine HCl [Sudafed] 30 mg PO Q4-6H PRN 10/06/19 01/27/22 History vitamin E 400 unit PO DAILY 10/06/19 01/27/22 History loratadine 10 mg PO DAILY PRN 06/08/20 01/27/22 History celecoxib 200 mg capsule 200 mg PO DAILY #90 cap 11/29/21 01/27/22 Rx cholecalciferol (vitamin D3) 125 mcg PO DAILY 01/27/22 01/27/22 History vitamin B complex 1 cap DAILY 01/27/22 01/27/22 History Patient hx anesthesia problems: post op nausea/vomiting Family hx anesthesia problems: none Results Review: All pre-operative results and documents have been reviewed as part of the pre-operative evaluation. [facility] Past Medical History Medical History (Updated 01/30/22 @ 12:07 by Cornel Woodson DO) BMI 31.0-31.9,adult Gastroesophageal reflux disease without esophagitis Irregular heartbeat PACs Localized osteoarthritis of left knee Obesity PONV (postoperative nausea and vomiting) Vitamin D deficiency Surgical History Surgical History History of total left knee replacement (~11/01/19) History of total right knee replacement (~2019) Presence of right artificial knee joint Family History Family History Father Diabetes mellitus, Onset Age: 60 Family history of diabetes mellitus in first degree relative Family history of arthritis Mother Family history of kidney stones Family history of malignant neoplasm of breast in first degree relative Family history of osteoarthritis Family history of osteoporosis Family history of arthritis Family history of malignant neoplasm Sibling Breast cancer Crohn's colitis Bone cancer Social History Social History Smoking status: Never smoker Second hand tobacco smoke exposure: No Alcohol intake: current Drinks per week: 2 Substance use: never Substance use type: does not use Living arrangements: with family 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 Gender identity (if verbalized by the patient): Female Spiritual care concerns: No Agree to blood products: No Anes - Eval Final PreProcedure Day of Procedure 01/30/22 12:05 Patient weight: obese Heart: regular rate and rhythm Lungs: clear to auscultation and normal air movement Airway: Mallampati scale class II Neurological: alert and oriented Last oral intake: >/= 8 hours ASA classification: II Emergent: no Anesthetic plan: proceed Anesthesia type and monitoring: general GIVS and standard monitoring Results Review: All pre-operative results and documents have been reviewed as part of the pre-operative evaluation. Informed Consent: The patient's anesthetic plan and its attendant risks and benefits were discussed with the patient/family/POA. Questions were solicited and answers provided to the satisfaction of the patient/family/POA.
--- NOTE | ~2022-01-31 | XR_ITS ---
EXAMINATION: XR surgery orthopedic EXAM DATE: 01/31/2022 08:21 INDICATION: Left foot hardware removal. TECHNIQUE: Fluoroscopy used during left foot hardware removal performed by Dr. Todd Vargas JR MD. Radiologist was not present for the imaging or procedure. Total fluoroscopic time of 5 seconds. The DAP for this procedure was 0.44 cGycm2. A total of 3 images sent to PACS from the exam. Correl ation is made to surgical procedure images from 08/23/2021. FINDINGS: Previous study had plate and supporting screws bridging the left 1st metatarsophalangeal j oint. These have been removed except for one screw which was not through the plate. Evidence of prior 1st proximal phalangeal osteotomy, staple-like orthopedic device, interval sclerosis, reparative res ponse. Possible changes of bunionectomy. Correlate with procedure note. IMPRESSION: Fluoroscopy used during left metatarsophalangeal orthopedic plate removal. Reviewed, dictated and finalized at location D. IMPRESSION: Fluoroscopy used during left metatarsophalangeal orthopedic plate r emotulio.
[2022-01-31 06:09] VITALS: BP 130/86; PULSE 83; RESP 16; TEMP 36.2; O2SAT 99
[2022-01-31] MEDS: LACTATED RINGERS 1,000 ML 30 ML IV CONT ×2 (06:56→08:18)
--- NOTE | 2022-01-31 07:15 | WPDHPUPDATE1 ---
History and Physical Update Update Date/Time: 01/31/22 07:15 History and Physical has been reviewed, including an updated exam of the patient. There are NO changes in the patient's condition. Risks, benefits, and alternatives have been discussed and questions answered. Patient agrees to proceed with procedure.
[2022-01-31] MEDS: ceFAZolin 2 GM/D5W 50 ML 2 GM/50 ML BAG IVPB (07:26)
[2022-01-31] MEDS: LIDOCAINE HCL 2% PF INJ 5 ML VIAL 10 ML INFILTRATE (07:48)
[2022-01-31 08:17] VITALS: BP 119/69; PULSE 78; RESP 17; O2SAT 98
--- NOTE | 2022-01-31 08:20 | P.OP_ITS ---
Procedure Note - Detailed Date of Procedure 01/31/22 Pre-op Diagnosis Left foot painful deep orthopedic hardware Post-op Diagnosis Same Procedure Performed Removal of deep orthopedic hardware left foot Surgeon Todd Vargas JR, DPM Anesthesia MAC and Local Indications Painful hardware left foot with developing ulceation Description of Procedure Under mild sedation, the patient was brought in to the operating room, placed on the operating table in the supine position. A pneumatic ankle tourniquet was placed about the patient's leg. Following monitored anesthesia care, local anesthesia was obtained about the patients ankle utilizing 20 mL of a 1:1 mixture of 2% Lidocaine plain and 0.5% Marcaine plain. The foot was then scrubbed, prepped, and draped in the usual aseptic manner. An Esmarch bandage was then used to exsanguinate the patient's foot and the pneumatic calf tourniquet was then inflated. An incision was made along the dorsal aspect of the medial cuneiform the incision was continued to the periosteal and capsular tissue. The [employer] Lapifuse plate was visualized and removed with the hardware removal kit. It was removed in toto and placed on the back table. Fluoroscopy was used to confirm complete plate and screw removal. I did leave the first to second intermetatarsal screw intact to prevent an increase in the first intermetatarsal angle. I took a deep wound culture swab and sent for aerobic and anaerobic culture and sensitivity. The wound site was flushed with sterile saline. Next, the capsular and subctaneus structures were reapproximated with 3-0 and 4-0 Vicryl in simple interrupted suture fashion technique. The skin was reapproximated with 4-0 Monocryl in running subcuticular suture fashion technique. Upon completion of the procedure, the incision was dressed with 1/4 Steri Strips Adaptic, 4x4s, Kerlix, and Coban. The pneumatic calf tourniquet was then deflated and a prompt hyperemic response was noted to all digits of the foot. The surgical shoe was then applied. The patient did very well with the procedure and the anesthesia. The patient was transferred to the recovery room with vital signs stable and vascular status intact to all toes of the foot. Following a period of postoperative monitoring, the patient will be discharged home on the following written and oral postoperative instructions: 1. The patient should keep the dressing clean, dry, and intact. Use a cast protector bag with showers. 2. The patient will be protected weightbearing with CAM boot. 3. Patient should ice and elevate the affected lower extremity while at rest. 4. The patient is to contact Dr. Vargas for all postop care and if any problems arise. 5. Prescriptions were written for Percocet 5/325 dispensed 40 to be taken 1 p.o. q.4-6 hours as needed for severe pain. Estimated Blood Loss 5 Drains No Packing No Pathology Yes Complications No immediate complications Condition Stable Disposition Same day
[2022-01-31 08:47] VITALS: BP 133/65; PULSE 77; RESP 16; O2SAT 98
== END 2022-01-31 09:05 | disposition home or self-care (01) ==
PROVIDERS: PCP Family Medicine; Visit Provider Podiatrist Foot & Ankle Surgery
PROC: (CPT 20680; principal; 2022-01-31 07:30)
DX: T84.84XA Pain due to internal orthopedic prosthetic devices, implants and grafts, initial encounter (principal); Y83.8 Other surgical procedures as the cause of abnormal reaction of the patient, or of later complication, without mention of misadventure at the time of the procedure; M25.572 Pain in left ankle and joints of left foot; L97.429 Non-pressure chronic ulcer of left heel and midfoot with unspecified severity; K21.9 Gastro-esophageal reflux disease without esophagitis; I49.1 Atrial premature depolarization; E11.9 Type 2 diabetes mellitus without complications; E66.9 Obesity, unspecified; Z68.32 Body mass index [BMI] 32.0-32.9, adult; R25.2 Cramp and spasm
CPT/HCPCS: 20680; 87070; 87075; 87205; J0690; J1100; J2250; J2405; J2704; J3010; J7120

== ENCOUNTER 2022-05-05 15:28 | Outpatient (CLI) | payer OTHER, SELFPAY ==
--- NOTE | ~2022-05-05 | MM_ITS ---
EXAMINATION: MM screening [facility] BI w kristina HISTORY: Screening TECHNIQUE: Craniocaudal and mediolateral oblique 3-D tomosynthesis images were obtained and synthetic 2-D images were generated. CAD analysis was submitted and interpreted. COMPARISON: Comparison to multiple prior studies sequentially, with oldest reviewed study dated 12/2016. BREAST PARENCHYMAL COMPOSITION: There are scattered areas of fibroglandular density. FINDINGS: There is no evidence of suspicious mass, calcification, or architectural distortion to sugg est malignancy in either breast. There has been no suspicious interval change. IMPRESSION: 1. No mammographic evidence of malignancy. 2. Recommend routine screening mammography in one year. BI-RADS Category 1: Negative Reviewed, dictated and finalized at location A.
== END 2022-05-05 15:29 | disposition home or self-care (01) ==
LOC: ANHIMG 15:30
PROVIDERS: PCP Family Medicine; Visit Provider Nurse Practitioner
DX: Z12.31 Encounter for screening mammogram for malignant neoplasm of breast (principal)
CPT/HCPCS: 77063; 77067

== ENCOUNTER 2022-06-17 12:53 | Outpatient (CLI) | payer OTHER, SELFPAY ==
--- NOTE | ~2022-06-17 | US_ITS ---
EXAMINATION: US pelvic complete w TV DATE: 06/17/2022 13:56 INDICATION: Pelvic pain. TECHNIQUE: Multiple transabdominal and transvaginal sonographic images of the pelvis were obtained. COMPARISON: CT abdomen and pelvis 10/01/2016 FINDINGS: TRANSABDOMINAL ULTRASOUND: The uterus measures 7.4 x 3.3 x 4.0 cm. There is no free fluid in the pelvis. TRANSVAGINAL ULTRASOUND: The endometrial complex measures 4 mm in thickness. There is a 1.2 cm calcified intramural fibroid. T here is a 0.9 cm calcified intramural fibroid. The ovaries are not visualized. IMPRESSION: 1. Small uterine fibroids. 2. Ovaries not visualized. Reviewed, dictated and finalized at location A.
== END 2022-06-17 12:54 | disposition home or self-care (01) ==
PROVIDERS: PCP Family Medicine; Visit Provider Nurse Practitioner
DX: R10.2 Pelvic and perineal pain (principal); D25.9 Leiomyoma of uterus, unspecified
CPT/HCPCS: 76830; 76856

== ENCOUNTER 2022-06-25 10:38 | Outpatient (CLI) | payer OTHER, SELFPAY ==
--- NOTE | ~2022-06-25 | MR_ITS ---
EXAMINATION: MR breast BI wo/w con INDICATION: Family history of breast cancer TECHNIQUE: Axial VIBRANT pre and dynamic post contrast, Sagittal VIBRANT post contrast, Axial T2 STIR ASSET COMPARISON: None CONTRAST: Multihance, 15 cc BREAST COMPOSITION: Scattered fibroglandular tissue FINDINGS: RIGHT BREAST: There is minimal background parenchymal enhancement. No abnormal enhancement is present after contrast administration. No pathologically enlarged axillary or internal mammary lymph nodes a re identified. LEFT BREAST: There is minimal background parenchymal enhancement. There is a 3 mm round focus of enha ncement in the anterior third of the upper breast at the 12:00 location 5.7 cm from the nipple. No pa thologically enlarged axillary or internal mammary lymph nodes are identified. IMPRESSION: 1. Probably benign focus of enhancement in the left breast. Follow-up MRI in six months is recommende d. BI-RADS category 3, probably benign findings. Reviewed, dictated and finalized at location B. IMPRESSION: 1. Probably benign focus of enhancement in the left breast. Follow-up MRI in si x months is recommended. BI-RADS category 3, probably benign findings.
== END 2022-06-25 10:39 | disposition home or self-care (01) ==
PROVIDERS: PCP Family Medicine; Visit Provider Obstetrics & Gynecology Gynecology
DX: R92.2 Inconclusive mammogram (principal); Z80.3 Family history of malignant neoplasm of breast; Z91.89 Other specified personal risk factors, not elsewhere classified
CPT/HCPCS: 77049; A9577; C8908

== ENCOUNTER 2022-10-04 16:01 | Emergency (ER) | payer OTHER, SELFPAY ==
--- NOTE | 2022-10-04 16:12 | ED.UPPEXIN ---
HPI - Extremity Injury (Upper) General Chief Complaint: Extremity Injury, Upper Stated Complaint: FALL/R ARM & R KNEE PAIN Time Seen by Provider: 10/04/22 16:12 Source: patient and RN notes reviewed History of Present Illness HPI narrative: Patient is a 61-year-old female who presents to Urgent Care with her with complaints of right knee pain and right elbow pain after a fall at [facility]. Patient states that she lost her footing while going up the sidewalk ramp, tripped over her own toes falling on her right side. Patient states that she had several layers on including a sweatshirt, a coat, leggings and blue jeans. Patient does have a history of knee replacement on the right side. Patient is denying any pain with ambulation or movement of the right upper extremity. States the incident happened at 3:00 p.m.. Denies hitting her head or any other injuries from the incident. Patient is not taking anything [id number] for her pain. No other acute complaints. No acute distress noted. Patient aware of the plan of care. Some parts of this dictation were generated by voice recognition software and may contain typographical and/or grammatical inaccuracies. Related Data Home Medications Medication Instructions Recorded Confirmed denosumab 60 mg/mL subcutaneous 60 mg subcut [id number] 10/06/19 10/04/22 syringe (Prolia) esomeprazole magnesium 20 mg 40 mg PO DAILY 10/06/19 10/04/22 capsule,delayed release (Nexium) magnesium 200 mg tablet 400 mg PO BID PRN Cramps 10/06/19 10/04/22 multivitamin (Multiple Vitamins 1 tablet PO DAILY 10/06/19 10/04/22 tablet) pseudoephedrine HCl 30 mg tablet 30 mg PO Q4-6H PRN Congestion 10/06/19 10/04/22 (Sudafed) psyllium seed (sugar) oral powder 2 tbsp PO DAILY 10/06/19 10/04/22 (Fiber Therapy (psyllium seed-sucrose) oral powder) vitamin E 268 mg (400 unit) capsule 400 unit PO DAILY 10/06/19 10/04/22 loratadine 10 mg tablet 10 mg PO DAILY PRN Allergic 06/08/20 10/04/22 Symptoms cholecalciferol (vitamin D3) 125 125 mcg PO DAILY 01/27/22 10/04/22 mcg (5,000 unit) capsule vitamin B complex 1 cap DAILY 01/27/22 10/04/22 conjugated estrogens 0.625 mg/gram 1 applic vaginal 2XW 07/14/22 10/04/22 vaginal cream (Premarin) Allergies Allergy/AdvReac Type Severity Reaction Status Date / Time hydrocodone AdvReac Mild NAUSEA/VOMI Verified 10/04/22 16:10 TING Review of Systems Review of Systems: CONSTITUTIONAL: Denies fever, chills, or sweats. EYES: Denies visual changes, redness, or discharge. ENT: Denies rhinorrhea, congestion, sore throat, or otalgia. CARDIOVASCULAR: Denies chest pain, palpitations, or edema. RESPIRATORY: Denies cough or dyspnea. GASTROINTESTINAL: Denies abdominal pain, nausea, vomiting, or diarrhea. GENITOURINARY: Denies dysuria or hematuria. SKIN: Denies rash or itching. MUSCULOSKELETAL: Reports right elbow and right knee pain NEUROLOGIC: Denies headache, numbness, or weakness. All other systems reviewed are negative, except as documented in HPI. [facility] Past Medical History Medical History BMI 31.0-31.9,adult BMI 32.0-32.9,adult Gastroesophageal reflux disease without esophagitis Irregular heartbeat PACs Localized osteoarthritis of left knee Obesity PONV (postoperative nausea and vomiting) Vitamin D deficiency Surgical History Surgical History History of total left knee replacement (~11/01/19) History of total right knee replacement (~2018) Presence of right artificial knee joint Family History Family History Father Diabetes mellitus, Onset Age: 60 Family history of diabetes mellitus in first degree relative Family history of arthritis Mother Family history of kidney stones Family history of malignant neoplasm of breast in first degree relative Family h
[2022-10-04 16:13] VITALS: BP 143/97; PULSE 101; RESP 16; TEMP 36.9; O2SAT 100
== END 2022-10-04 16:33 | disposition home or self-care (01) ==
PROVIDERS: Emergency Provider Nurse Practitioner Family; PCP Family Medicine
DX: S50.311A Abrasion of right elbow, initial encounter (principal); W01.0XXA Fall on same level from slipping, tripping and stumbling without subsequent striking against object, initial encounter; S50.01XA Contusion of right elbow, initial encounter; S80.01XA Contusion of right knee, initial encounter; K21.9 Gastro-esophageal reflux disease without esophagitis; M17.12 Unilateral primary osteoarthritis, left knee; E66.9 Obesity, unspecified; E55.9 Vitamin D deficiency, unspecified; Z68.29 Body mass index [BMI] 29.0-29.9, adult; Z96.653 Presence of artificial knee joint, bilateral
CPT/HCPCS: 99212; G0463

== ENCOUNTER 2023-06-08 12:35 | Outpatient (CLI) | payer OTHER, SELFPAY ==
--- NOTE | ~2023-06-08 | MR_ITS ---
EXAMINATION: MR breast BI wo/w con INDICATION: Family history of breast cancer, follow-up for probably benign focus of enhancement in th e left breast TECHNIQUE: Axial VIBRANT pre and dynamic post contrast, Sagittal VIBRANT post contrast, Axial T2 STIR ASSET COMPARISON: 06/25/2022 CONTRAST: Multihance, 15 cc BREAST COMPOSITION: Scattered fibroglandular tissue FINDINGS: RIGHT BREAST: There is minimal background parenchymal enhancement. No abnormal enhancement is present after contrast administration. No pathologically enlarged axillary or internal mammary lymph nodes a re identified. LEFT BREAST: There is minimal background parenchymal enhancement. Again seen is a stable 3 mm focus o f enhancement in the anterior third of the upper breast at the 12:00 location 6 cm from the nipple. T here has been no suspicious interval change. Enhancement kinetics are benign. No pathologically enlar ged axillary or internal mammary lymph nodes are identified. IMPRESSION: 1. No MRI evidence of malignancy. Routine screening mammography is recommended, which is due. In shai tion, consider supplemental screening by MRI if indicated by lifetime risk assessment. BI-RADS Category 2: Benign finding(s). Reviewed, dictated and finalized at location A. IMPRESSION: 1. No MRI evidence of malignancy. Routine screening mammography is recommended, which is due. In addition, consider supplemental screening by MRI if indicated by lifetime risk assessment. BI-RADS Category 2: Benign finding(s).
== END 2023-06-08 12:36 | disposition home or self-care (01) ==
PROVIDERS: PCP Family Medicine; Visit Provider Obstetrics & Gynecology Gynecology
DX: Z91.89 Other specified personal risk factors, not elsewhere classified (principal); Z80.3 Family history of malignant neoplasm of breast
CPT/HCPCS: 77049; A9577; C8908

== ENCOUNTER 2023-10-13 10:03 | Outpatient (CLI) | payer OTHER, SELFPAY ==
--- NOTE | ~2023-10-13 | DEXA_ITS ---
Bone Density Report Name: EREN GORMAN Age: 62 Sex: Female Ethnicity: White Date of : 1960 Indication: osteopenia; monitoring treatment; height loss; prior fracture; Referring Provider: STEVAN SHERWOOD Study: Bone densitometry was performed. Exam Date: October 13, 2023 Accession number: [id number] Bone Density: Region BMD T-score Z-score Classification AP Spine(L1, L4) 1.026 -0.1 1.5 Normal Femoral Neck (Left) 0.634 -1.9 -0.5 Osteopenia Total Hip (Left) 0.784 -1.3 -0.2 Osteopenia Femoral Neck (Right) 0.624 -2.0 -0.6 Osteopenia Total Hip (Right) 0.811 -1.1 0.0 Osteopenia Total Hip Mean 0.797 -1.2 -0.1 Osteopenia World Health Organization criteria for BMD impression classify patients as: Normal (T-score at or above -1.0), Osteopenia (T-score between -1.0 and -2.5), or Osteoporosis (T-score at or below -2.5). 10-year Fracture Risk: FRAX not reported because: Treated for osteoporosis Previous Exams: Region Exam Age BMD T-score BMD Change BMD Change Date g/cm2 vs Baseline vs Previous AP Spine (L1,L4) 10/13/2023 62 1.026 -0.1 0.060 (6.2%)* 0.060 (6.2%)* 06/21/2021 60 0.966 -0.6 Total Hip(Left) 10/13/2023 62 0.784 -1.3 0.016 (2.1%) 0.016 (2.1%) 06/21/2021 60 0.767 -1.4 Total Hip(Right) 10/13/2023 62 0.811 -1.1 -0.016 (-1.9%) -0.016 (-1.9%) 06/21/2021 60 0.827 -0.9 *Denotes significance at 95% confidence level, LSC for AP Spine = 0.022 g/cm2, LSC for Total Hip = 0.027 g/cm2 Clinical Information Provided by Patient: Has had a low trauma fracture Is being treated for osteoporosis Has used the following medications: Prolia (i.e. denosumab), Vitamin D Patient maximum height was 65 Menopause Age: 50 Drinks caffeinated beverages Onset of menses at age 13 Number of children 2 Impression: The patient has low bone mass, based on the Right Femoral Neck T-score. The patient has risk factors, including: previous fracture. No significant bone loss was observed. Discussion: PATIENT UNDER TREATMENT WITH NO SIGNIFICANT BMD LOSS SINCE LAST EXAM. In an untreated patient, BMD typically declines with age. A lack of decline or gain is usually a sign that treatment is efficacious and fracture risk is reduced. It is important to ask patients whether they are taking their medications and to encourage continued and appropriate compliance with their osteoporosis therapies to reduce fracture risk. It is also important
== END 2023-10-13 10:04 | disposition home or self-care (01) ==
PROVIDERS: Visit Provider Obstetrics & Gynecology Gynecology
DX: M81.0 Age-related osteoporosis without current pathological fracture (principal); M85.89 Other specified disorders of bone density and structure, multiple sites; Z78.0 Asymptomatic menopausal state
CPT/HCPCS: 77080

== ENCOUNTER → 2023-12-16 16:18 | Outpatient (CLI) | payer OTHER, SELFPAY ==
--- NOTE | ~2023-12-16 | XR_ITS ---
EXAMINATION: XR lumbar spine 2-3V DATE: 12/16/2023 16:38 INDICATION: Low back pain TECHNIQUE: Anteroposterior and lateral views of the lumbar spine, and cone-down lateral view of the l umbosacral junction were obtained. COMPARISON: 01/19/2017 FINDINGS: There are chronic L5 pars defects with approximately 13 mm of anterolisthesis of L5 on S1, mildly increased since the comparison examination. There are 5 mm of retrolisthesis of L1 on L2. Ther e is no fracture. There is severe loss of intervertebral disc space height at L5-S1 and mild loss of intervertebral disc space height from L2-3 through L4-5. The lumbar vertebral body heights are mainta ined. Surgical clips in the right upper quadrant are likely from prior cholecystectomy. There is lalya re facet joint osteoarthritis of the mid and lower lumbar spine. IMPRESSION: 1. Severe lumbar spondylosis with slight interval worsening of anterolisthesis of L5 on S1. Reviewed, dictated and finalized at location F. SANDER
== END ==
PROVIDERS: PCP Family Medicine; Visit Provider Chiropractor
DX: M54.51 Vertebrogenic low back pain (principal); M99.03 Segmental and somatic dysfunction of lumbar region; M47.896 Other spondylosis, lumbar region
CPT/HCPCS: 72100

== ENCOUNTER 2023-12-29 14:47 | Outpatient (CLI) | payer OTHER, SELFPAY ==
--- NOTE | ~2023-12-29 | XR_ITS ---
EXAM: XR abdomen/kub 1V DATE: 12/29/2023 15:12 HISTORY: R30.0 - Dysuria . COMPARISON: 10/01/2016. FINDINGS: Clear lung bases. Normal bowel gas pattern. No organomegaly. Cholecystectomy clips. Possib le dropped clip over the right lower quadrant. No definite calcifications over the renal shadows. Pel brant phleboliths. Degenerative changes in the spine and bilateral hips. Unfused posterior L5 arch. IMPRESSION: No radiographic evidence of nephrolithiasis, obstruction, or ileus. Reviewed, dictated and finalized at location K.
== END 2023-12-29 14:48 ==
LOC: MICIMG 14:50
PROVIDERS: PCP Family Medicine; Visit Provider Physician Assistant
DX: R30.0 Dysuria (principal)
CPT/HCPCS: 74018

== ENCOUNTER 2024-03-23 05:53 | Day surgery (SDC) | payer OTHER, SELFPAY ==
[2024-01-12 11:02] VITALS: BMI 30.7
[2024-03-17 12:58] VITALS: BMI 29.4
[2024-03-23 06:18] VITALS: BP 122/85; PULSE 77; RESP 16; TEMP 36.5; O2SAT 98
--- NOTE | 2024-03-23 07:08 | PM.HPGS ---
History of Present Illness History of Present Illness Consent: Risks, benefits, and alternatives have been discussed and questions answered. Patient agrees to proceed with procedure. Chief complaint: History of Colon Polyps Narrative: Ning Ortiz is a 63 year old female presents for screening colonoscopy. Patient's current weight appetite and bowel movements are normal. She denies abdominal pain. Patient has had no bleeding. Family history noncontributory. S colonoscopy performed by Dr. Fink in 2016. Was found to have colon polyps. She returns today for screening exam. Review of Systems Review of Systems: All systems reviewed & are unremarkable except as noted in HPI and below PMFSH Past Medical History Medical History (Updated 03/23/24 @ 07:09 by Russ Meraz MD) BMI 30.0-30.9,adult BMI 31.0-31.9,adult BMI 32.0-32.9,adult Gastroesophageal reflux disease without esophagitis Irregular heartbeat PACs Localized osteoarthritis of left knee Obesity PONV (postoperative nausea and vomiting) Vitamin D deficiency Surgical History Surgical History History of total left knee replacement (~11/01/19) History of total right knee replacement (~2018) Presence of right artificial knee joint Family History Family History Father Diabetes mellitus, Onset Age: 60 Family history of diabetes mellitus in first degree relative Family history of arthritis Mother Family history of kidney stones Family history of malignant neoplasm of breast in first degree relative Family history of osteoarthritis Family history of osteoporosis Family history of arthritis Family history of malignant neoplasm Sibling Breast cancer Crohn's colitis Bone cancer Social History Social History Smoking status: Never smoker Second hand tobacco smoke exposure: No Alcohol intake: never Drinks per week: 2 Substance use: never Substance use type: does not use Living arrangements: with family Occupation/Education: occupation 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 Gender identity (if verbalized by the patient): Female Spiritual care concerns: No Agree to blood products: No Meds Home Medications and Allergies Home Medications Medication Instructions Recorded Confirmed Type denosumab 60 mg/mL subcutaneous 60 mg subcut [id number] 10/06/19 03/23/24 History syringe (Prolia) esomeprazole magnesium 20 mg 40 mg PO DAILY 10/06/19 03/23/24 History capsule,delayed release (Nexium) magnesium 200 mg tablet 400 mg PO BID PRN Cramps 10/06/19 03/23/24 History multivitamin (Multiple Vitamins 1 tablet PO DAILY 10/06/19 03/23/24 History tablet) pseudoephedrine HCl 30 mg tablet 30 mg PO Q4-6H PRN Congestion 10/06/19 03/23/24 History (Sudafed) psyllium seed (sugar) oral powder 2 tbsp PO DAILY 10/06/19 03/23/24 History (Fiber Therapy (psyllium seed-sucrose) oral powder) vitamin E 268 mg (400 unit) capsule 400 unit PO DAILY 10/06/19 03/23/24 History loratadine 10 mg tablet 10 mg PO DAILY PRN Allergic 06/08/20 03/23/24 History Symptoms cholecalciferol (vitamin D3) 125 125 mcg PO DAILY 01/27/22 03/23/24 History mcg (5,000 unit) capsule vitamin B complex 1 cap DAILY 01/27/22 03/23/24 History conjugated estrogens 0.625 mg/gram 1 applic vaginal 2XW 07/14/22 03/23/24 History vaginal cream (Premarin) ascorbic acid (vitamin C) 1,000 mg 1 g PO DAILY 12/28/23 03/23/24 History capsule celecoxib 200 mg capsule 200 mg PO DAILY #90 caps 01/13/24 03/23/24 Rx Allergies Allergy/AdvReac Type Severity Reaction Status Date / Time hydrocodone AdvReac Mild NAUSEA/VOMI Verified 03/23/24 06:16 TING Vital Signs Vital Signs - 24 hr 03/23/24 06:18 Temperature 97.7 F Pulse Rate 77 Respira
--- NOTE | 2024-03-23 07:25 | WPDANESEPPF ---
Anes - Initial Pre Proc Eval Procedure: Operation Date: 03/23/24 07:30 Proposed Procedures p Diagnostic Colonoscopy - Russ Meraz MD Date/Time: 03/23/24 07:25 Surgeon: Russ Meraz MD Pre Op Diagnosis: History of Colon Polyps Patient Data Age: 63 Gender: F Height: 1.64 m Weight: 80.5 kg Last Vital Signs Temp 36.5 C 03/23/24 06:18 Pulse 77 03/23/24 06:18 Resp 16 03/23/24 06:18 BP 122/85 03/23/24 06:18 Pulse Ox 98 03/23/24 06:18 O2 Del Method Room Air 03/23/24 06:18 Allergies Allergy/AdvReac Type Severity Reaction Status Date / Time hydrocodone AdvReac Mild NAUSEA/VOMI Verified 03/23/24 06:16 TING Home Medications Medication Instructions Recorded Confirmed Type denosumab 60 mg/mL subcutaneous 60 mg subcut [id number] 10/06/19 03/23/24 History syringe (Prolia) esomeprazole magnesium 20 mg 40 mg PO DAILY 10/06/19 03/23/24 History capsule,delayed release (Nexium) magnesium 200 mg tablet 400 mg PO BID PRN Cramps 10/06/19 03/23/24 History multivitamin (Multiple Vitamins 1 tablet PO DAILY 10/06/19 03/23/24 History tablet) pseudoephedrine HCl 30 mg tablet 30 mg PO Q4-6H PRN Congestion 10/06/19 03/23/24 History (Sudafed) psyllium seed (sugar) oral powder 2 tbsp PO DAILY 10/06/19 03/23/24 History (Fiber Therapy (psyllium seed-sucrose) oral powder) vitamin E 268 mg (400 unit) capsule 400 unit PO DAILY 10/06/19 03/23/24 History loratadine 10 mg tablet 10 mg PO DAILY PRN Allergic 06/08/20 03/23/24 History Symptoms cholecalciferol (vitamin D3) 125 125 mcg PO DAILY 01/27/22 03/23/24 History mcg (5,000 unit) capsule vitamin B complex 1 cap DAILY 01/27/22 03/23/24 History conjugated estrogens 0.625 mg/gram 1 applic vaginal 2XW 07/14/22 03/23/24 History vaginal cream (Premarin) ascorbic acid (vitamin C) 1,000 mg 1 g PO DAILY 12/28/23 03/23/24 History capsule celecoxib 200 mg capsule 200 mg PO DAILY #90 caps 01/13/24 03/23/24 Rx Patient hx anesthesia problems: post op nausea/vomiting Family hx anesthesia problems: post op nausea/vomiting Results Review: All pre-operative results and documents have been reviewed as part of the pre-operative evaluation. [facility] Past Medical History Medical History BMI 30.0-30.9,adult BMI 31.0-31.9,adult BMI 32.0-32.9,adult Gastroesophageal reflux disease without esophagitis Irregular heartbeat PACs Localized osteoarthritis of left knee Obesity PONV (postoperative nausea and vomiting) Vitamin D deficiency Surgical History Surgical History History of total left knee replacement (~11/01/19) History of total right knee replacement (~2018) Presence of right artificial knee joint Family History Family History Father Diabetes mellitus, Onset Age: 60 Family history of diabetes mellitus in first degree relative Family history of arthritis Mother Family history of kidney stones Family history of malignant neoplasm of breast in first degree relative Family history of osteoarthritis Family history of osteoporosis Family history of arthritis Family history of malignant neoplasm Sibling Breast cancer Crohn's colitis Bone cancer Social History Social History Smoking status: Never smoker Second hand tobacco smoke exposure: No Alcohol intake: never Drinks per week: 2 Substance use: never Substance use type: does not use Living arrangements: with family Occupation/Education: occupation 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
[2024-03-23] MEDS: LACTATED RINGERS 1,000 ML 150 ML IV CONT (07:27)
[2024-03-23 07:45] VITALS: BP 90/58; PULSE 84; RESP 15; O2SAT 97
[2024-03-23 08:05] VITALS: BP 119/71; PULSE 74; RESP 15; O2SAT 99
== END 2024-03-23 08:25 | disposition home or self-care (01) ==
PROVIDERS: PCP Family Medicine; Visit Provider Internal Medicine Gastroenterology
PROC: 0DJD8ZZ Inspection of Lower Intestinal Tract, Via Natural or Artificial Opening Endoscopic (ICD-10-PCS; CPT 45378; principal; 2024-03-23 07:30)
DX: Z86.010 Personal history of colon polyps (principal); K57.30 Diverticulosis of large intestine without perforation or abscess without bleeding; K64.8 Other hemorrhoids
CPT/HCPCS: 45378

== ENCOUNTER 2024-08-29 07:21 | Outpatient (CLI) | payer OTHER, SELFPAY ==
--- NOTE | ~2024-08-29 | MM_ITS ---
EXAMINATION: MM screening [facility] BI w kristina HISTORY: Screening mammogram, family history of breast cancer in her mother and sister. TECHNIQUE: Craniocaudal and mediolateral oblique 3-D tomosynthesis images were obtained and synthetic 2-D images were generated. CAD analysis was submitted and interpreted. COMPARISON: 05/05/2022, 05/08/2021, 10/15/2020, 06/14/2020 BREAST PARENCHYMAL COMPOSITION:Not Dense. There are scattered areas of fibroglandular density. FINDINGS: No suspicious mass, calcification, or architectural distortion are identified in either joanne ast to suggest malignancy. There has been no suspicious interval change. IMPRESSION: No mammographic evidence of malignancy. Recommend routine screening mammography in one year. BI-RADS Category 1: Negative Reviewed, dictated and finalized at [facility]. [facility]
== END 2024-08-29 07:22 | disposition home or self-care (01) ==
LOC: ANHIMG 07:23
PROVIDERS: PCP Family Medicine; Visit Provider Obstetrics & Gynecology
DX: Z12.31 Encounter for screening mammogram for malignant neoplasm of breast (principal)
CPT/HCPCS: 77063; 77067

== ENCOUNTER 2025-07-21 16:06 | Emergency (ER) | payer OTHER, SELFPAY ==
[2025-07-21 16:15] VITALS: BP 137/89; PULSE 93; RESP 16; TEMP 36.3; O2SAT 97
--- NOTE | 2025-07-21 16:25 | ED.URI ---
HPI - URI/Sore Throat General Chief Complaint: Upper Respiratory Infection Stated Complaint: chest pain, fever, headache Time Seen by Provider: 07/21/25 16:25 Source: patient, RN notes reviewed and old records reviewed Mode of arrival: ambulatory Limitations: no limitations History of Present Illness HPI Narrative: 64 year old female who presents to [facility] care with complaints of over one week duration of initially sinus congestion with drainage which has now settled in her chest with cough,low grade fevers highest of 100.4F, headaches with expectoration of greenish mucous, Patient reports that she took home COVID test which was negative, Patient reports some hoarseness, denies any sore throat or any body aches or any shortness of breath.Patient reports that she has been taking Claritin and Tylenol for her symptoms. MD elicited complaint: fever, cough, sore throat, rhinorrhea, nasal congestion and other (chest congestion) Onset (ago): week(s) (greater than one week) Consistency: constant Severity: moderate Description of mucous: green Able to tolerate fluids by mouth: Yes Treatments prior to arrival: acetaminophen and other (claritin) Related Data Home Medications ?Medication ?Instructions ?Recorded ?Confirmed ?Last Taken ?Type esomeprazole magnesium 20 mg 40 mg PO DAILY 10/06/19 02/06/25 01/30/22 History capsule,delayed release (Nexium) magnesium 200 mg tablet 400 mg PO BID PRN Cramps 10/06/19 02/06/25 01/27/22 History multivitamin (Multiple Vitamins 1 tablet PO DAILY 10/06/19 02/06/25 01/27/22 History tablet) pseudoephedrine HCl 30 mg tablet 30 mg PO Q4-6H PRN Congestion 10/06/19 02/06/25 01/30/22 History (Sudafed) psyllium seed (sugar) oral powder 2 tbsp PO DAILY 10/06/19 02/06/25 01/27/22 History (Fiber Therapy (psyllium seed-sucrose) oral powder) vitamin E 268 mg (400 unit) capsule 400 unit PO DAILY 10/06/19 02/06/25 01/27/22 History loratadine 10 mg tablet 10 mg PO DAILY PRN Allergic 06/08/20 02/06/25 01/30/22 History Symptoms cholecalciferol (vitamin D3) 125 125 mcg PO DAILY 01/27/22 02/06/25 01/27/22 History mcg (5,000 unit) capsule vitamin B complex 1 cap DAILY 01/27/22 02/06/25 01/27/22 History conjugated estrogens 0.625 mg/gram 1 applic vaginal 2XW 07/14/22 02/06/25 Unknown History vaginal cream (Premarin) ascorbic acid (vitamin C) 1,000 mg 1 g PO DAILY 12/28/23 02/06/25 Unknown History capsule Allergies Allergy/AdvReac Type Severity Reaction Status Date / Time hydrocodone AdvReac Mild NAUSEA/VOMI Verified 02/06/25 07:27 TING Review of Systems Review of Systems: CONSTITUTIONAL: Reports malaise, chills, sweats, or fever. EYES: Denies visual changes, redness, or discharge. ENT: Reports rhinorrhea, congestion, sinus pain,no otalgia and no sore throat. CARDIOVASCULAR: Denies chest pain, palpitations, or edema, soreness chest with cough RESPIRATORY: Reports productive cough.? Denies dyspnea. GASTROINTESTINAL: Denies abdominal pain, nausea, vomiting, diarrhea SKIN: Denies rash or itching. MUSCULOSKELETAL: Denies myalgia. NEUROLOGIC: Denies headache. All systems reviewed & are unremarkable except as noted in HPI and below PMFSH Past Medical History Medical History Age related osteoporosis BMI 30.0-30.9,adult BMI 32.0-32.9,adult PONV (postoperative nausea and vomiting) BMI 31.0-31.9,adult Obesity Localized osteoarthritis of left knee Gastroesophageal reflux disease without esophagitis Irregular heartbeat PACs Vitamin D deficiency Surgical History Surgical History History of cholecystectomy History of appendectomy H/O hernia repair Presence of artificial knee joint, bilateral History of total left knee replacement (~11/01/19) Presence of right artificial knee joint History of total right knee replacement (~2018) Family History Family History Father Diabetes mellitus, Onset Age: 60 Family history of diabetes mellitus in first degree relative Family history of arthritis Mother Family history of kidney stones Family history of malignant neoplasm of breast in first degree relative Family history of osteoarthritis Family history of osteoporosis Family history of arthritis Family history of malignant neoplasm Sibling Breast cancer Crohn's colitis Bone cancer Social History Social History Smoking status: Never smoker Second hand tobacco smoke exposure: No Alcohol intake: never Drinks per week: 2 Substance use: never Substance use type: does not use Do You Feel Safe in your Home?: Yes Lack of Transportation: No Lack of Food: Never True Current Housing: I Have Housing Concerned About Future Housing: No Difficulty Paying Gas/Electric Bills: No Difficulty Paying for Meds: No Currently Unemployed: No Education: Trade/Vocational Certificate Difficulty w/ Childcare or Family Care: No Living arrangements: with family Occupation/Education: occupation 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 There is no relevant family history pertinent to the presenting complaint Exam Narrative: GENERAL: Well-appearing, well-nourished, and in no acute distress. HEAD: Normocephalic EYES: PERRLA, conjunctivae clear ENT: Nares clear, turbinates edematous and erythematous, clear discharge, sinus pressure. Mucous membranes moist. TM pearly weber with dull light reflex bilaterally; no tragal tenderness. Oropharynx erythematous without lesions. Tonsils not enlarged and without exudate, no drooling, no hoarseness, no trismus, uvula midline.post nasal drainage NECK: Supple. No lymphadenopathy CHEST: Clear to auscultation, breath sounds equal. No wheezing, rhonchi, rales, or stridor. No respiratory distress, speaks in full sentences.productive cough SAO2 97% on room air HEART: Regular rate and rhythm. No murmur heard. SKIN: Warm, dry, no rash. NEURO: Alert and oriented x3. PSYCH: Normal mood and affect Course Course Emergency Course: Patient is aware of diagnosis, understands and agrees to treatment plan.? Anticipatory guidance given.? Patient agrees to follow-up as directed and is aware of reasons to seek care at the emergency department. Portions of this record may have been created with voice recognition software Level of Care: Express Care Visit Vital Signs Vital signs: Vital Signs Temperature 36.3 C L 07/21/25 16:15 Pulse Rate 93 07/21/25 16:15 Respiratory Rate 16 07/21/25 16:15 Blood Pressure 137/89 07/21/25 16:15 Pulse Oximetry 97 07/21/25 16:15 Temperature 36.3 C L 07/21/25 16:15 Pulse Rate 93 07/21/25 16:15 Respiratory Rate 16 07/21/25 16:15 Blood Pressure 137/89 07/21/25 16:15 Pulse Oximetry 97 07/21/25 16:15 Reviewed MDM - URI/Sore Throat MDM Narrative Medical decision making narrative: Differential diagnosis considered: Marte virus, strep pharyngitis, allergic rhinitis, upper respiratory tract infection, sinusitis, rhinosinusitis, nasopharyngitis. viral pharyngitis, otitis media, otitis externa, pneumonia, bronchitis, viral cough syndrome, viral syndrome, and influenza.? Exam findings show no acute concerns or changes; patient is non-toxic appearing and is in no distress.? Patient is appropriate for outpatient treatment and follow-up. Differential Diagnosis Differential diagnosis: Likely upper respiratory infection, sinusitis, viral infection and other (acute cough) Medical Records Attestation: I reviewed the patient's medical records. Lab Data Attestation: I reviewed the patient's lab results. Critical Care Time Critical Care Time Critical Care Time: No Discharge Plan Discharge Clinical Impression: URI with cough and congestion Patient Disposition: Home Condition: Stable Instructions: Antibiotic Form, Upper Respiratory Infection (ED), Acute Cough (ED) Additional Instructions: Increase fluids especially juices and water Prle-byd-yatzogt cough and cold medicine of your choice for your symptoms Prescription cough medicine as directed--caution drowsiness and no driving or alcohol Zyrtec Claritin or Petrona daily Steroids as directed--take with food heat to the face 20-30 minutes 4-6 times a day for pain Salt water gargles, throat lozenges or throat sprays as desired Antibiotic as directed--finished the medication If your symptoms persist, change or worsen significantly before you can contact your personal physician then please, without delay, go to the emergency department for further evaluation. Follow-up with PCP in 7-10 days or sooner if needed Follow up with PCP soon in regards to your blood pressure which is elevated above threshold for referral. Blood pressure above 120/80 may indicate pre-hypertension. 137/89 Patient Language: Bengali Prescriptions: New azithromycin 250 mg tablet See Rx Instructions .ROUTE .COMPLEX Qty: 6 0RF Rx Instructions: For 250 mg dose pack: take 500 mg today (day 1), then 250 mg for 4 days (days 2-5) prednisone 20 mg tablet 20 mg PO BID Qty: 10 0RF Rx Instructions: take with food take p.m. dose before 6:00 p.m. codeine-guaifenesin 10-100 mg/5 mL liquid 10 ml PO Q4-6H PRN (Reason: cough) Qty: 120 0RF No Action Premarin 0.625 mg/gram cream 1 applic vaginal 2XW ascorbic acid (vitamin C) 1,000 mg capsule 1 g PO DAILY celecoxib 200 mg capsule 200 mg PO DAILY Qty: 90 3RF Patient Comments: STATES INSTRUCTED TO HOLD FOR 5 DAYS PRIOR TO SURGERY PER DR. ARCEO loratadine 10 mg Tablet 10 mg PO DAILY PRN (Reason: Allergic Symptoms) cholecalciferol (vitamin D3) 125 mcg (5,000 unit) Capsule 125 mcg PO DAILY vitamin B complex Capsule 1 cap DAILY multivitamin [Multiple Vitamins] Tablet 1 tablet PO DAILY pseudoephedrine HCl [Sudafed] 30 mg Tablet 30 mg PO Q4-6H PRN (Reason: Congestion) vitamin E 400 unit Capsule 400 unit PO DAILY esomeprazole magnesium [Nexium] 20 mg Capsule,Delayed Release(Dr/Ec) 40 mg PO DAILY Patient Comments: STATES TAKES 2 TABS DAILY magnesium 200 mg Tablet 400 mg PO BID PRN (Reason: Cramps) Fiber Therapy(psyl seed-sugar) Powder 2 tbsp PO DAILY Follow-up/Referrals: Kemal Mercado MD [Primary Care Provider, Family Practice] Time of Disposition: 16:33 Quality Navdeep Coma Scale Eyes: Open Verbal: Oriented and Alert Motor: Follows Commands Rowland Coma Total Score: 15
== END 2025-07-21 16:39 | disposition home or self-care (01) ==
PROVIDERS: Emergency Provider Registered Nurse; PCP Family Medicine
DX: J06.9 Acute upper respiratory infection, unspecified (principal); R05.9 Cough, unspecified; K21.9 Gastro-esophageal reflux disease without esophagitis; E55.9 Vitamin D deficiency, unspecified; M17.12 Unilateral primary osteoarthritis, left knee; M81.0 Age-related osteoporosis without current pathological fracture; E66.9 Obesity, unspecified; Z68.29 Body mass index [BMI] 29.0-29.9, adult
CPT/HCPCS: 99213; G0463

== ENCOUNTER 2025-08-30 15:13 | Outpatient (CLI) | payer OTHER, SELFPAY ==
--- NOTE | ~2025-08-30 | MM_ITS ---
EXAMINATION: MM screening [facility] BI w kristina HISTORY: Screening TECHNIQUE: Craniocaudal and mediolateral oblique 3-D tomosynthesis images were obtained and synthetic 2-D images were generated. CAD analysis was submitted and interpreted. COMPARISON: Comparison to multiple prior studies sequentially, with oldest reviewed study dated 07/05/2019. BREAST PARENCHYMAL COMPOSITION: Not dense: There are scattered areas of fibroglandular density. FINDINGS: There is no evidence of suspicious mass, calcification, or architectural distortion to suggest malignancy in either breast. There has been no suspicious interval change. IMPRESSION: 1. No mammographic evidence of malignancy. 2. Recommend routine screening mammography in one year. BI-RADS Category 1: Negative Reviewed, dictated and finalized at location B. ALLMENT ACCOUNT CHECKER
--- OUTSIDE RECORDS SUMMARY | 2025-08-30 15:58 | XMS_ITS | Clinical Summary ---
Author Organization [facility] Address [address] [place] [address] Phone Care Team Providers Care Gas Appliance Servicer Helper Name Role Phone Kemal Mercado MD Primary Care Provider [phone] Allergies Active Allergy Reactions Criticality Noted Date Comments Hydrocodone-Acetaminophen Other (See Com ments),Nausea and Vomiting Low 11/26/2020 Medications denosumab (PROLIA) 60 mg/mL Syringe Active Premarin 0.625 mg/gram vaginal cream INSERT 0.5G VAGINALLY 2 TIMES PER WEEK 0 Active celecoxib (CeleBREX) 200 mg capsule TAKE 1 CAPSULE BY MOUTH EVERY DAY 0 Active acetaminophen (Tylenol 8 Hour) 650 mg Extended Release tablet Activ e B-complex + vitamin C (Super B Complex-Vitamin C) Tablet Active pseudoephedrine HCl (PSEUDAFEN ORAL) Active vitamin E 400 unit capsule Active magnesium oxide 400 mg magnesium Capsule Active ascorbic acid, vitamin C, (Vitamin C) 1,000 mg Tablet Acti ve esomeprazole (NexIUM) 20 mg Capsule, Delayed Release(E.C.) Active ergocalciferol (VITAMIN D2) 50,000 unit capsule TAKE 1 CAPSULE BY MOUTH WEEKLY 0 Active FIBER, PSYLLIUM HUSK, ORAL Active loratadine 10 mg Capsule Active Active Problems Patient Care Coordination No te Formatting of this note migh t be different from the original. Primary Care: Kemal Mercado MD Referring Provider: Kemal Mercado MD [address] [place] [address] Other: Dr. Darby Gold Problem Noted Date Diagnosed Date At high risk for breast cancer 12/06/2020 Family history of breast cancer in first degree relative 12/06/2020 Family History Medical History Relation Name Comments Breast Cancer Mother Breast Cancer Sister Relation Name Status Comments Mother Sister Social History Tobacco Use Types Packs/Day Years Used Date Smoking Tobacco: Never Alcohol Use Standard Drinks/Week Comments Yes 0 (1 standard drink = 0.6 oz pur e alcohol) moderate Comments No Sex and Gender Information Value Date Recorded Sex Assigned at Not on file Legal Sex Female 5:18 PM OFFAL SEPARATOR Gender Identity Not on file Sexual Orientation Not on file Last Filed Vital Signs Vital Sign Reading Time Taken Comments Blood Pressure 100/76 12/06/2020 10:15 AM OFFAL SEPARATOR Pulse - - Temperature - - Respiratory Rate - - Oxygen Saturation - - Inhaled Oxygen Concentration - - Weight 84.8 kg (187 lb) 12/06/2020 10:15 AM OFFAL SEPARATOR Height 163.8 cm (5' 4.5) 12/06/2020 10:15 AM CS T Body Mass Index 31.6 12/06/2020 10:15 AM OFFAL SEPARATOR Plan of Treatment Health Maintenance Due Date Last Done Comments DTAP/TDAP/TD VACCINES (1 - Tdap) 1979 HPV/Cotest (21-29) 1981 HPV/Cotest (30-65) 1990 FIT-DNA Q 3 years 2005 FIT/FOBT Q 1 year 2005 Flex Sig/CT Colonography Q 5 years 2005 ZOSTER VACCINE (1 of 2) 2010 CERVICAL CANCER SCREENING 07/04/2019 PAP SMEAR 07/04/2019 07/04/2016, 07/04/2016 BREAST CANCER SCREENING 05/09/2022 05/09/20 21, 05/09/2021, 05/08/2021, Additional history exists INFLUENZA VACCINE (#1) 2025 COLORECTAL SCREENING 08/02/2028 08/02/2018 Colorectal Cancer Screening 08/02/2028 RSV VACCINE (60+ or ) (1 - 1-dose 75+ series) 2035 Procedures Procedure Name Priority Date/Time Associated Diagnosis Comments MAMMO DIAG UNI RIGHT 3D TALIA W OR WO CAD Routine 10/15/2020 from Last 3 Months or Most Recently Relevant to Health Maintenance Results * MAMMO DIAG UNI RIGHT 3D TALIA W OR WO CAD (10/15/2020) Anatomical Region Laterality Modality Breast Right Mammography us Abstract Provider MAMMO ORDERABLES Edited Result - Final from Last 3 Months or Most Recently Relevant to Health Maintenance Care Teams Gas Appliance Servicer Helper Relationship Specialty Start Date End Date Kemal Mercado MD [address] [place] [address] PCP - General Family Practice 01/16/21
--- OUTSIDE RECORDS SUMMARY | 2025-08-30 15:58 | XMS_ITS | Clinical Summary ---
Author Organization [facility] Address [address] [place] [address] Care Team Providers Care Neck Cutter Name Role Phone Kemal Mercado MD Primary Care Provider Allergies Active Allergy Reactions Criticality Noted Date Comments Hydrocodone-Acetaminophen Nausea only Low 1 Medications celecoxib (CeleBREX) 200 mg capsule Take by mouth daily 0 Active ergocalciferol (VITAMIN D) 50,000 unit capsule TAKE 1 CAPSULE BY MOUTH WEEKLY 0 Active Premarin vaginal cream INSERT 0.5G VAGINALLY 2 TIMES PER WEEK 0 Active oxyCODONE-aceta minophen (PERCOCET) 5-325 mg per tablet TAKE 1 TABLET BY MOUTH EVERY 4 TO 6 HOURS NEEDED FOR SEVERE PAIN 0 Active Xarelto 10 mg tablet TAKE 1 TABLET BY MOUTH EVERY DAY START 24 HOURS AFTER SURGERY 0 Active Active Problems No known active problems Surgical History Surgery Date Site/Laterality Comments APPENDECTOMY 10/19/1993 - 10/18/1994 CHOLECYSTECTOMY 10/19/1995 - 10/18/1996 ROTATOR CUFF REPAIR 10/19/2014 - 10/18/2015 TOTAL KNEE ARTHROPLASTY Medical History Medical History Date Comments Arthritis Family History Medical History Relation Name Comments Non-Hodgkin's Lymphoma Brother age 27 at dx Breast cancer Mother age 50 at dx Breast cancer Sister age 53 at dx Relation Name Status Comments Brother age 27 at dx Alive Mother age 50 at dx Alive Sister age 53 at dx Alive Social History Tobacco Use Types Packs/Day Years Used Date Smoking Tobacco: Never Personal Safety Answer Date Recorded Getting School Help Needed Not on file 01/02 Comments Unknown Sex and Gender Information Value Date Recorded Sex Assigned at Not on file Legal Sex Female 3:05 PM CAMP DIRECTOR Gender Identity Not on file Sexual Orientation Not on file Last Filed Vital Signs Vital Sign Reading Time Taken Comments Blood Pressure - - Pulse - - Temperature - - Respiratory Rate - - Oxygen Saturation - - Inhaled Oxygen Concentration - - Weight 81.2 kg (179 lb) 11/26/2020 11:15 AM CAMP DIRECTOR Height 163.8 cm (5' 4.5) 11/26/2020 11:15 AM CS T Body Mass Index 30.25 11/26/2020 11:15 AM CAMP DIRECTOR Plan of Treatment Not on [place] [address] [facility] [place] [address] [place] [address] Care Teams Neck Cutter Relationship Specialty Start Date End Date Kemal Mercado MD PCP - General Family Medicine 10/30/20
--- OUTSIDE RECORDS SUMMARY | 2025-08-30 15:58 | XMS_ITS | Encounter Summary ---
Author Organization [facility] Address [address] [place] [address] Phone Care Team Providers Care Skilled Nursing Professional Name Role Phone Kemal Mercado MD Primary Care Provider Encounter Details Date Type Department Care Team (Late st Contact Info) Description 11/30/2020 Telephone [facility] Surgery [address] [facility] 5[address] [place] [address] [place] [phone] Rose Cowart Social History Tobacco Use Types Packs/Day Years Used Date Smoking Tobacco: Never Comments Unknown Sex and Gender Information Value Date Recorded Sex Assigned at Not on file Legal Sex Female 3:05 PM CONSOLE OPERATOR Gender Identity Not on file Sexual Orientation Not on file documented as of this encounter Plan of Treatment Not on file documented as of this encounter Visit Diagnoses Not on filedocumented in this encounter Care Teams Skilled Nursing Professional Relationship Specialty Start Date End Date Kemal Mercado MD PCP - General Family Medicine 10/30/20 documented as of this encounter
== END 2025-08-30 15:14 | disposition home or self-care (01) ==
LOC: ANHFOHIMG 15:15
PROVIDERS: PCP Family Medicine; Visit Provider Obstetrics & Gynecology
DX: Z12.31 Encounter for screening mammogram for malignant neoplasm of breast (principal)
CPT/HCPCS: 77063; 77067